=== PATIENT | male | born 1960 | race Caucasian/White ===

== ENCOUNTER 2018-06-03 16:42 | Inpatient (IN) | payer OTHER ==
[~2018-06-03] VITALS: Ht 195.6 cm; Wt 117.9 kg
[2018-06-03 16:42] VITALS: BP_SYST 121
--- NOTE | 2018-06-03 16:42 | NUR ---
BROUGHT IMMEDIATELY BACK TO BED #8 AND TRIAGED. REPORT GIVEN TO CARMELINA
--- NOTE | 2018-06-03 16:51 | NUR ---
RAYMOND Silveira at bedside examining patient.
--- NOTE | 2018-06-03 17:04 | NUR ---
Patient is awake, alert, oriented x4. He states that he recently had a change in hypertension medication dosage. He felt dizzy today and fell on the floor. Patient presents with laceration to the back of his head, he reports pain 3/10. Patient is verbal and in good spirits.
[2018-06-03] MEDS ORDERED: LIDOCAINE 4% TOPICAL 50 ML BOTTLE MM ONE (17:48)
[2018-06-03] MEDS ORDERED: ACETAMINOPHEN 500 MG TABLET PO ONE (18:00)
[2018-06-03] MEDS ORDERED: NACL 0.9% 1,000 ML IV ONE ×3 (18:00→19:15)
[2018-06-03] MEDS ORDERED: ONDANSETRON HCL 4 MG/2 ML VIAL IVP ONE (18:00)
--- NOTE | 2018-06-03 18:01 | NUR ---
Patient transported to radiology via gurney, accompanied by radiology.
--- NOTE | 2018-06-03 18:11 | NUR ---
Returned from radiology, back to [facility].
[2018-06-03 18:18] LABS: CALCIUM 7.5 mg/dL (8.4-11.0); CREATININE 1.14 mg/dL (0.55-1.30); POTASSIUM 4.2 mmol/L (3.5-5.1)
[2018-06-03 18:20] LABS: BASOPHILS # (AUTO) 0.1 K/uL (0.0-0.2); BASOPHILS % (AUTO) 1.3 % (0.0-2.0); EOSINOPHILS # (AUTO) 0.1 K/uL (0.0-0.4); EOSINOPHILS % (AUTO) 1.2 % (0.0-4.0); HEMATOCRIT 33.1 % (36-54); HEMOGLOBIN 11.5 g/dL (14.0-18.0); LYMPHOCYTES % (AUTO) 20.7 % (20.5-51.5); MEAN CORPUSCULAR HEMOGLOBIN 36 pg (27-31); MEAN CORPUSCULAR HGB CONC 35 % (32-36); MEAN CORPUSCULAR VOLUME 105 fL (79.0-98.0); MONOCYTES # (AUTO) 0.7 K/uL (0.0-1.0); MONOCYTES % (AUTO) 14.5 % (1.7-9.3); NEUTROPHILS # (AUTO) 3.1 K/uL (1.8-7.7); NEUTROPHILS % (AUTO) 62.3 % (40.0-70.0); RED BLOOD CELL COUNT(AUTO) 3.16 MIL/uL (4.2-6.2); RED CELL DISTRIBUTION WIDTH 16.8 % (9.0-15.0)
[2018-06-03 18:23] LABS: TOTAL BILIRUBIN 4.4 mg/dL (0.0-1.0)
[2018-06-03 18:27] LABS: PLATELET COUNT (AUTO) 78 K/uL (130-430)
[2018-06-03] MEDS ORDERED: VALS160T2 PO (18:58)
--- NOTE | 2018-06-03 18:58 | NUR ---
Medication reconciliation completed with information provided by FAMILY. Any prior medication reconciliation on file was reviewed and corrected.
[2018-06-03] MEDS ORDERED: LIDOCAINE 1%, 20 ML MDV 20 ML ONE (19:05)
--- NOTE | 2018-06-03 19:05 | NUR ---
Endorsed care to Gracieene for continuation of care.
--- NOTE | 2018-06-03 19:11 | NUR ---
Patient has a laceration to posterior head. Dr. Silveira applied 10 jerod using sterile technique. Edges well approximated. Site cleansed with NS. Dressing applied to site. No bleeding noted. Pt tolerated well.
[2018-06-03 19:30] VITALS: BP_SYST 107
--- NOTE | 2018-06-03 19:30 | NUR ---
ADMISSION NOTE Received patient from ER via gurney. Patient admitted with diagnosis of . Patient is awake, alert, oriented X 4. Patient oriented to hospital room, call light, toileting, pain management and safety-teach back done. Patient informed that Nazanin will be his nurse and that their room number is 104a. Personal belongings checked and Belongings List documented. Call light within reach.
--- NOTE | 2018-06-03 19:34 | NUR ---
Patient will be admitted to [facility]. Admitted to Medsurg unit. Will go to room 104B. Summary report printed. Report will be given at bedside.
[2018-06-03 20:17] VITALS: BP_SYST 141
--- NOTE | 2018-06-03 20:25 | NUR ---
OPENING NOTE Patient resting in bed awake, alert, oriented x4. Breathing unlabored and even on room air. No signs of distress, no needs at this time. Fall and safety precautions in place. Bed in lowest position, brake on, alarm on, call light within reach. IVF infusing as ordered. Will continue to monitor.
--- NOTE | 2018-06-03 21:25 | NUR ---
Patient's pillow soiled with blood from head laceration. Removed dressing and applied pressure to bleeding. Kept pressure on for 10 min until bleeding stopped. Placed new non-adhesive bandages and pressure dressing to laceration site. Reinforced with kerlix wrapped around patient's head. Vital signs stable. Educated patient on signs of bleeding. Will continue to monitor.
[2018-06-03] MEDS ORDERED: HYDROcodone/ACETAMIN 5-325 MG TAB (NORCO/ VICODIN) PO PRN (22:00)
--- NOTE | 2018-06-03 22:00 | NUR ---
No signs of bleeding.
--- NOTE | 2018-06-03 23:33 | NUR ---
Assisted pt to the bathroom.
[2018-06-03] MEDS: ACETAMINOPHEN 325 MG TABLET PO PRN (23:37)
--- NOTE | 2018-06-03 23:38 | NUR ---
Pt c/o pain. Administered PRN tylenol PO as ordered.
[2018-06-04] VITALS: BP_SYST 121
--- NOTE | 2018-06-04 00:30 | NUR ---
Patient resting in bed with eyes closed. Breathing unlabored and even on room air. No signs of distress, no needs at this time. Fall and safety precautions in place. Bed in lowest position, brake on, alarm on, call light within reach. IVF infusing as ordered. Will continue to monitor. Still no signs of bleeding.
--- NOTE | 2018-06-04 04:08 | NUR ---
Patient bled through bandages and soiled pillow. Pt still bleeding. ER Dr. Amador came to assess patient. He removed 3 of the 10 jerod and sutured the laceration. Bleeding stopped. Bandage placed on patients head. Will continue to monitor.
[2018-06-04 06:57] LABS: HEMATOCRIT 30.9 % (36-54); HEMOGLOBIN 10.4 g/dL (14.0-18.0); MEAN CORPUSCULAR HEMOGLOBIN 36 pg (27-31); WHITE BLOOD COUNT (AUTO) 5.2 K/uL (4.8-10.8)
[2018-06-04 07:04] LABS: MEAN CORPUSCULAR HGB CONC 34 % (32-36); MEAN CORPUSCULAR VOLUME 106 fL (79.0-98.0); RED BLOOD CELL COUNT(AUTO) 2.92 MIL/uL (4.2-6.2); RED CELL DISTRIBUTION WIDTH 16.5 % (9.0-15.0)
[2018-06-04 07:10] LABS: PLATELET COUNT (AUTO) 53 K/uL (130-430)
[2018-06-04 07:13] LABS: ALBUMIN 1.8 g/dL (3.4-4.8); CALCIUM 7.6 mg/dL (8.4-11.0); CREATININE 0.93 mg/dL (0.55-1.30); POTASSIUM 4.3 mmol/L (3.5-5.1); TOTAL BILIRUBIN 4.4 mg/dL (0.0-1.0)
--- NOTE | 2018-06-04 07:49 | NUR ---
CLOSING NOTE Gave report to Cecilia. Patient resting in bed awake, alert, oriented x4. Breathing unlabored and even on room air. No signs of distress, no needs at this time. Fall and safety precautions in place. Bed in lowest position, brake on, alarm on, call light within reach. IV saline locked. Patient is NPO. Still no signs of bleeding. Endorsed care to day shift nurse.
--- NOTE | 2018-06-04 07:50 | NUR ---
opening note pt awake alert, no distress noted. call light visibly within reach, bed alarm in place on lowest position.
[2018-06-04 08:00] VITALS: BP_SYST 141
[2018-06-04 08:16] LABS: BAND % (MANUAL) 2 % (0-6); BASOPHILS % (MANUAL) 0 % (0-2); EOSINOPHILS % (MANUAL) 0 % (0-7); LYMPHOCYTES % (MANUAL) 13 % (20-46); MONOCYTES % (MANUAL) 5 % (0-11)
[2018-06-04 09:36] LABS: INR 1.7 (0.80-1.20); PROTHROMBIN TIME 17.6 SECS (9.5-12.5)
[2018-06-04 09:46] LABS: BILIRUBIN,URINE NEGATIVE (NEGATIVE); BLOOD, URINE NEGATIVE (NEGATIVE); CLARITY/URINE CLEAR (CLEAR); COLOR,URINE YELLOW (YELLOW); GLUCOSE,URINE NEGATIVE (NEGATIVE); KETONES,URINE TRACE (NEGATIVE); LEUKOCYTE ESTERASE ,URINE NEGATIVE (NEGATIVE); NITRITE, URINE NEGATIVE (NEGATIVE); PROTEIN URINE NEGATIVE (NEGATIVE)
--- NOTE | 2018-06-04 11:00 | NUR ---
PATIENT RESTING: Patient resting quietly. No acute distress noted. Vital signs within normal range.
[2018-06-04 12:32] VITALS: BP_SYST 145
--- NOTE | 2018-06-04 13:20 | NUR ---
patient resting with family at bedside, no distress noted.
[2018-06-04 16:00] VITALS: BP_SYST 136
[2018-06-04] MEDS: ACETAMINOPHEN 325 MG TABLET PO PRN (16:11)
--- NOTE | 2018-06-04 16:11 | NUR ---
med pass pt c/o head pain requesting tylenol at this time. no other distress noted.
[2018-06-04] MEDS ORDERED: LORazepam 2 MG/ML VIAL IVP PRN (16:30)
[2018-06-04] MEDS ORDERED: FOLIC ACID 1 MG, THIAMINE HCL 100 MG, MAGNESIUM SULFATE 1 GM, MVI 10 ML in NACL 0.9% 1,... IV SCH (18:00)
--- NOTE | 2018-06-04 18:17 | NUR ---
med pass iv banana hung. pt also agitated given ativan ivp as ordered.
--- NOTE | 2018-06-04 19:32 | NUR ---
CLOSING NOTE ALL NEEDS MET THROUGH SHIFT. SAFETY MAINTAINED, CARE ENDORSED TO CARAMEL MAKER.
--- NOTE | 2018-06-04 19:40 | NUR ---
OPENING NOTE Received report from day shift nurse. Patient resting in bed awake, alert, oriented x4. Breathing unlabored and even on room air. No signs of distress, no needs at this time. Fall and safety precautions in place. Bed in lowest position, brake on, call light within reach. Will continue to monitor.
[2018-06-04 20:00] VITALS: BP_SYST 149
[2018-06-04] MEDS: chlordiazePOXIDE HCL 25 MG CAPSULE PO SCH (20:40)
--- NOTE | 2018-06-04 22:50 | NUR ---
Assisted pt to the bathroom
[2018-06-05 00:14] VITALS: BP_SYST 148
--- NOTE | 2018-06-05 00:25 | NUR ---
Patient resting in bed with eyes closed. Breathing unlabored and even on room air. No signs of distress, no needs at this time. Fall and safety precautions in place. Bed in lowest position, brake on, call light within reach. Will continue to monitor.
[2018-06-05 06:06] LABS: HEPATITIS A AB, IgM Negative (Negative); HEPATITIS B CORE AB, IgM Negative (Negative); HEPATITIS B SURFACE AG Negative (Negative)
--- NOTE | 2018-06-05 07:48 | NUR ---
CLOSING NOTE Gave report to Rita. Patient resting in bed awake, alert, oriented x4. Breathing unlabored and even on room air. No signs of distress, no needs at this time. Fall and safety precautions in place. Bed in lowest position, brake on, call light within reach. Endorsed care to day shift nurse.
[2018-06-05 08:00] VITALS: BP_SYST 155
--- NOTE | 2018-06-05 08:00 | NUR ---
Opening Note received report from shift nurse manager RN, pt resting in bed, A&Ox4, respirations even and unlabored on room air, pt denies any pain, no acute distress noted, IV site clean, dry, and intact, no bleeding noted from back of head laceration, jerod and sutures in place, pt educated on use of call light and asked to call for assistance, pt verbalized understanding, call light in reach, bed in low position, bed alarm on, side rails padded, fall, aspiration, and seizure precautions in place.
[2018-06-05] MEDS: chlordiazePOXIDE HCL 25 MG CAPSULE PO SCH (08:34)
--- NOTE | 2018-06-05 08:35 | NUR ---
Medication pt educated on medication use and side effects, pt verbalized understanding, pt tolerated medication administration well, no acute distress noted, fall and aspiration precautions in place. Addendum: 06/05/18 at 0903 by Rita Livingston RN add: seizure precautions in place.
--- NOTE | 2018-06-05 09:05 | NUR ---
MD Rounds Dr. Murphy at bedside speaking with pt, made aware of pt BP 155/85, HR 98 this AM.
--- NOTE | 2018-06-05 09:48 | NUR ---
Nutrition Update Jos Scale 18 noted. Pt admitted for alcohol intoxication, fall w/ head trauma. Diet: regular BMI: 30.8 kg/m2 RD to follow per nutrition care standards.
--- NOTE | 2018-06-05 10:07 | NUR ---
Discharge Planning: WIP faxed order to to [facility] (f [phone] p [phone]).
[2018-06-05 10:24] VITALS: BP_SYST 155
--- NOTE | 2018-06-05 10:41 | NUR ---
Sameer BEAUCHAMP Pageben Murphy regarding med rec for discharge home.
--- NOTE | 2018-06-05 10:42 | NUR ---
RN Rounds pt sitting in bedside chair, no acute distress noted, pt denies any pain at this time, fall, aspiration, and seizure precautions in place.
--- NOTE | 2018-06-05 11:00 | NUR ---
Spoke with MD spoke with Dr. Murphy regarding med rec for discharge home, per MD continue home medication of valsartan 160mg PO daily.
--- NOTE | 2018-06-05 12:06 | NUR ---
Discharge orders for discharge home, pt provided discharge packet with instructions and med rec, pt instructed to follow up with PCP, pt verbalized understanding, pt stable, no acute distress noted, IV catheter removed, catheter intact, no bleeding, hospital ID band removed, pt accompanied by sonRené, all belongings sent home with pt.
== END 2018-06-05 12:06 | disposition home or self-care (01) | DRG 433 ==
LOC: SED 16:42 → STU 19:03 → SMU 19:34
PROVIDERS: ADMIT Internal Medicine; ATTEND Internal Medicine Hospice and Palliative Medicine
PROC: 0HQ0XZZ Repair Scalp Skin, External Approach (ICD-10-PCS; principal; 2018-06-03)
DX: K70.30 Alcoholic cirrhosis of liver without ascites (principal); E87.1 Hypo-osmolality and hyponatremia; D68.9 Coagulation defect, unspecified; S01.01XA Laceration without foreign body of scalp, initial encounter; I10 Essential (primary) hypertension; I95.89 Other hypotension; T46.5X5A Adverse effect of other antihypertensive drugs, initial encounter; D69.6 Thrombocytopenia, unspecified; W18.39XA Other fall on same level, initial encounter; F10.220 Alcohol dependence with intoxication, uncomplicated; D64.9 Anemia, unspecified; R74.0 Nonspecific elevation of levels of transaminase and lactic acid dehydrogenase [LDH]; R73.9 Hyperglycemia, unspecified; H26.9 Unspecified cataract; E88.09 Other disorders of plasma-protein metabolism, not elsewhere classified; R55 Syncope and collapse; Y90.8 Blood alcohol level of 240 mg/100 ml or more; Z79.899 Other long term (current) drug therapy; Y92.89 Other specified places as the place of occurrence of the external cause; Y93.89 Activity, other specified; Y99.8 Other external cause status
CPT/HCPCS: 36415; 70450-TC; 76700-TC; 80053; 80074; 81003; 85007; 85025; 85027; 85610-TC; 93306; 93970; 96361; 96374; 99285; G0482; J2001; J2060; J2405; J3411; J3475; J3490; J7030